=== PATIENT | female | born 1980 | race Two or more races ===

== ENCOUNTER 2020-04-13 09:37 | Outpatient (CLI) | payer OTHER ==
[2020-04-13 10:59] LABS: BASOPHILS # (AUTO) 0.1 10^3/uL (0.0-0.1); BASOPHILS % (AUTO) 0.4 %; EOSINOPHILS # (AUTO) 0.3 10^3/uL (0.0-0.7); EOSINOPHILS % (AUTO) 2.2 %; HGB - HEMOGLOBIN 12.1 g/dL (12.0-16.0); LYMPHOCYTES # (AUTO) 1.5 10^3/uL (1.5-3.5); LYMPHOCYTES % (AUTO) 11.8 %; MEAN CORPUSCULAR HEMOGLOBIN 32.3 pg (27.0-31.0); MEAN CORPUSCULAR HGB CONC 33.3 g/dL (32.0-36.0); MEAN CORPUSCULAR VOLUME 96.8 fL (81.0-99.0); MEAN PLATELET VOLUME 9.3 fL (7.9-10.8); MONOCYTES # (AUTO) 0.7 10^3/uL (0.0-1.0); MONOCYTES % (AUTO) 5.4 %; NEUTROPHILS # (AUTO) 9.8 10^3/uL (1.5-6.6); NEUTROPHILS % (AUTO) 79.5 %; PLT - PLATELET COUNT 332 10^3/uL (130-450); RED BLOOD COUNT 3.75 10^6/uL (4.20-5.40); RED CELL DISTRIBUTION WIDTH 12.3 % (12.0-15.0); WHITE BLOOD COUNT 12.3 x10^3/uL (4.8-10.8)
== END 2020-04-13 09:38 | disposition home or self-care (01) ==
LOC: LAB 09:37
PROVIDERS: ATTEND Advanced Practice Midwife
DX: Z36.89 Encounter for other specified antenatal screening (principal); O09.529 Supervision of elderly multigravida, unspecified trimester
CPT/HCPCS: 36415; 82950; 85025; 86850; 86900; 86901

== ENCOUNTER 2020-04-30 13:10 | Outpatient (CLI) | payer OTHER ==
--- NOTE | 2020-04-30 16:15 | Ultrasound Report ---
PROCEDURE: OB F/U or Repeat INDICATIONS: SUPERVISION OF ELDERLY MULTIGRAVIDIA OUTSIDE/PRIOR DATING DATA: Last menstrual period (LMP): 09/26/2019. LMP-based estimated date of delivery (JODY): 07/02/2020. First dating scan (date and location): Not available, [facility]. Estimated date of delivery (JODY) from first dating scan: Not available. TECHNIQUE: Real-time scanning was performed of the fetus, with image documentation and biometric measurements. Biophysical profile was also performed. COMPARISON: None. FINDINGS: General: A single live intrauterine gestation is present. Presentation: Vertex Placenta: Placental position is anterior, without previa. Amniotic fluid index: 10.6 cm, within normal limits for gestational age. heart rate: 157 beats per minute. Maternal cervical canal: 4.7 cm long; normal length is 2.5 cm or more. biometrics: Biparietal diameter: 8 cm equals 32 weeks 1 day Head circumference: 29.4 cm equals 32 weeks 3 days Abdominal circumference: 27.5 cm equals 31 weeks 4 days Femur length: 6.2 cm equals 31 weeks 6 days Estimated gestational age from initial scan: 31 weeks 0 days Composite gestational age from present scan: 31 weeks 6 days Estimated weight and percentile: 1841 g, 66th percentile Measurement variability in biometric dating: +/- 10 days from 12-20 weeks gestation, +/- 2 weeks from 20-30 weeks gestation, +/- 3 weeks at 30 weeks gestation or more. Other: Not applicable. Biophysical profile: Tone: 2 points Movement: 2 points Respiration: 2 points Largest pocket: 2 points, 3.7 cm IMPRESSION: Single live intrauterine . Normal growth compared to the given prior outside dating. Normal biophysical profile, 8/8 points. Reviewed by: Chad Deal MD on 04/30/2020 3:13 PM [place] Approved by: Chad Deal MD on 04/30/2020 3:[address] [facility] Station ID: [id number]
== END 2020-04-30 13:11 | disposition home or self-care (01) ==
LOC: DI 13:10
PROVIDERS: ATTEND Advanced Practice Midwife
DX: O09.523 Supervision of elderly multigravida, third trimester (principal); Z3A.31 31 weeks gestation of pregnancy

== ENCOUNTER 2020-06-04 07:56 | Outpatient (CLI) | payer OTHER ==
[2020-06-04 09:26] VITALS: BP 121/77
--- NOTE | 2020-06-04 11:25 | Ultrasound Report ---
PROCEDURE: OB F/U or Repeat INDICATIONS: SUPERVISION OF ELDERLY MULTIGRAVIDA OUTSIDE/PRIOR DATING DATA: Last menstrual period (LMP): 09/26/2019. LMP-based estimated date of delivery (JODY): 07/02/2020. First dating scan (date and location): Not available, [facility]. Estimated date of delivery (JODY) from first dating scan: Given as 07/02/2020. TECHNIQUE: Real-time scanning was performed of the fetus, with image documentation and biometric measurements. COMPARISON: 04/30/2020, 02/16/2020 FINDINGS: General: A single live intrauterine gestation is present. Presentation: Breech Placenta: Placental position is anterior, without previa. Amniotic fluid index: 19.8 cm cm, 81st percentile for gestational age. heart rate: 140 beats per minute. Maternal cervical canal: 3.7 cm long; normal length is 2.5 cm or more. biometrics: Biparietal diameter: 8.7 cm equals 35 weeks 1 day Head circumference: 31.6 cm equals 35 weeks 4 days Abdominal circumference: 31.6 cm equals 35 weeks 4 days Femur length: 6.9 cm equals 35 weeks 3 days Estimated gestational age from initial scan: 36 weeks 0 days Composite gestational age from present s can: 35 weeks 3 days Estimated weight and percentile: 2683 g, 36th percentile Measurement variability in biometric dating: +/- 10 days from 12-20 weeks gestation, +/- 2 weeks from 20-30 weeks gestation, +/- 3 weeks at 30 weeks gestation or more. Other: Not applicable. No anatomic abnormality is identified on these images. IMPRESSION: Normal interval growth compared to the prior ultrasound examination. Reviewed by: Chad Deal MD on 06/04/2020 10:24 AM [facility] Approved by: Chad Deal MD on 06/04/2020 10:24 AM [facility] Station ID: [id number]
--- NOTE | 2020-06-04 13:02 | PROCEDURE REPORT ---
- HPI Diagnosis/Indication for NST: Intrauterine growth restriction (history of) Current EDU 07/02/20 Gestation 36 Weeks and 0 Days 2 Para 1 Vital Signs Temperature 37.0 C 06/04/20 09:25 Heart Rate 98 06/04/20 09:25 Respiratory Rate 18 06/04/20 09:25 Blood Pressure 121/77 06/04/20 09:25 O2 Saturation 100 06/04/20 09:25 Temperature 37.0 C 06/04/20 09:25 Heart Rate 98 06/04/20 09:25 Respiratory Rate 18 06/04/20 09:25 Blood Pressure 121/77 06/04/20 09:25 O2 Saturation 100 06/04/20 09:25 - NST Procedure NST Procedure Start Date 06/04/20 Start Time 09:15 Stop Time 09:47 Vibroacoustic Stimulation Used No Patient States Movement Yes - Results and Plan Findings/Impression: Hilario Bolanos is a 39yo at 36.0 weeks who presents for Weekly NST, Growth and ODALIS per [facility] recommendation for history of IUGR NST perform date 06/04/2020 NST read date 06/04/2020 FHT 150s, moderate variability, 15x15 accels, no decels Uterine activity- irregular/mild ODALIS- wnl (19.8cm, 81%) Growth- wnl (2683g, 36%) NST interpretation: Reactive Plan Continue with weekly NST, Growth and ODALIS Continue with routine care Final Diagnosis: History of IUGR
== END 2020-06-04 10:00 | disposition home or self-care (01) ==
LOC: DI 07:56 → FBP 09:09 → DI 10:00
PROVIDERS: ATTEND Advanced Practice Midwife
DX: O09.523 Supervision of elderly multigravida, third trimester (principal); Z3A.36 36 weeks gestation of pregnancy
CPT/HCPCS: 59025

== ENCOUNTER 2020-06-07 08:00 | Outpatient (CLI) | payer OTHER | END 2020-06-07 23:59 | disposition home or self-care (01) | LOC: LAB.R 08:00 | PROVIDERS: ATTEND Obstetrics & Gynecology | DX: Z36.85 Encounter for antenatal screening for Streptococcus B (principal) | CPT/HCPCS: 87797 ==

== ENCOUNTER 2020-06-10 09:55 | Outpatient (CLI) | payer OTHER ==
[2020-06-10 11:25] VITALS: BP 134/85
--- NOTE | 2020-06-10 11:39 | PROCEDURE REPORT ---
- HPI Diagnosis/Indication for NST: Intrauterine growth restriction Vital Signs Temperature 36.8 C 06/10/20 10:07 Heart Rate 99 06/10/20 10:07 Respiratory Rate 20 06/10/20 10:07 Blood Pressure 134/85 H 06/10/20 10:07 O2 Saturation 99 06/10/20 10:07 Temperature 36.8 C 06/10/20 10:07 Heart Rate 99 06/10/20 10:07 Respiratory Rate 20 06/10/20 10:07 Blood Pressure 134/85 H 06/10/20 10:07 O2 Saturation 99 06/10/20 10:07 - NST Procedure NST Procedure Start Time 09:15 Stop Time 09:47 - Results and Plan Plan: Hilario is a 39yo at 36.6wks gestation who presents for scheduled NST, Growth and ODALIS per [facility] recommendation for history of IUGR. She reports she is feeling well. She denies VB, LoF, or contractions. She denies concerns or complaints today. NST performed 06/10/2020 NST read 06/10/2020 NST reactive: FHT 150s, moderate variability, + accels, subtle late deceleration x 1 initially which resolved with hydration and repositioning of patient. Contractions irregular every 3-9 minutes with soft resting tone. Palpate mild and patient does not appreciate contractions. BPP 11/20 ODALIS 18.7 (WNL) Plan Continue with weekly NST, Growth and ODALIS Continue with routine care; pt has scheduled elective delivery 06/27/2020 Final Diagnosis: History of IUGR
--- NOTE | 2020-06-10 14:25 | Ultrasound Report ---
PROCEDURE: OB Biophysical Profile INDICATIONS: Advanced Maternal Age OUTSIDE/PRIOR DATING DATA: Last menstrual period (LMP): 09/26/2019. LMP-based estimated date of delivery (JODY): 07/02/2020. First dating scan (date and location): 04/30/2020 at [facility] Estimated date of delivery (JODY) from first dating scan: 07/02/2020. TECHNIQUE: Real-time transabdominal scanning was performed of the fetus, with image documentation an d biometric measurements. Biophysical profile was also obtained. COMPARISON: None. FINDINGS: General: A single living intrauterine gestation is present. Presentation: Breech Placenta: Placental position is anterior, without previa. Amniotic fluid index: 18.7 cm, 78 percentile for gestational age. heart rate: 143 beats per minute. Maternal cervical canal: 3.8 cm long; normal length is 2.5 cm or more. biometrics: Estimated gestational age from initial scan: 36 weeks 6 days. Biophysical profile: Tone: 2 points. Movement: 2 points. Respiration: 2 points. Largest pocket of fluid: 2 points. Umbilical artery Doppler: SD ratio at the placenta is 2.0/1.8; at midportion is 2.3/1.8; at CI is 2. 1/2.1 IMPRESSION: 1. Biophysical profile = 8/8 2. Normal umbilical artery Doppler. 3. Normal ODALIS. 4. The cervix is closed. Reviewed by: Zane Martin on 06/10/2020 2:23 PM PST Approved by: Zane Martin on 06/10/2020 2:23 PM PST Station ID: [id number]
== END 2020-06-10 13:50 | disposition home or self-care (01) ==
LOC: WFO 09:55 → FBP 10:00 → WFO 13:50
PROVIDERS: ATTEND Nurse Practitioner Obstetrics & Gynecology
DX: O36.5930 Maternal care for other known or suspected poor fetal growth, third trimester, not applicable or unspecified (principal); Z3A.36 36 weeks gestation of pregnancy
CPT/HCPCS: 59025

== ENCOUNTER 2020-06-17 18:54 | Outpatient (CLI) | payer OTHER ==
--- NOTE | 2020-06-17 21:50 | Ultrasound Report ---
PROCEDURE: OB Biophysical Profile INDICATIONS: HIST OF GROWTH RETARDATION OUTSIDE/PRIOR DATING DATA: Last menstrual period (LMP): 09/26/2019. LMP-based estimated date of delivery (JODY): 07/02/2020. TECHNIQUE: Real-time scanning was performed of the fetus, with image documentation and biometric caitie surements. Biophysical profile was also obtained. Endovaginal scanning: Performed COMPARISON: 06/10/2020 FINDINGS: General: A single living intrauterine gestation is present. Presentation: Breech Placenta: Placental position is anterior, without previa. Amniotic fluid index: Largest pocket 6.1 cm, 65th percentile for gestational age. heart rate: 131 beats per minute. Maternal cervical canal: 3.4 cm long; normal length is 2.5 cm or more. Measurement variability in biometric dating: +/- 10 days from 12-20 weeks gestation, +/- 2 weeks from 20-30 weeks gestation, +/- 3 weeks at 30 weeks gestation or later. Biophysical profile: Tone: 2 points. Movement: 2 points. Respiration: 2 points. Largest pocket of fluid: 2 points. Umbilical artery Doppler: S/D ratios are 2.4 and 2.1 at the placenta, 2.4 and 2.1 in the mid segment ; 2.8 and 2.3 at the umbilicus IMPRESSION: Single live intrauterine gestation with normal ODALIS. Normal biophysical profile and cord Doppler S/D ratios. Reviewed by: Regulo Bustillos MD on 06/17/2020 9:49 PM PST Approved by: Regulo Bustillos MD on 06/17/2020 9:49 PM PST Station ID: [id number]
== END 2020-06-17 18:55 | disposition home or self-care (01) ==
LOC: DI 18:54
PROVIDERS: ATTEND Nurse Practitioner Obstetrics & Gynecology
DX: Z87.59 Personal history of other complications of pregnancy, childbirth and the puerperium (principal)

== ENCOUNTER 2020-06-17 19:55 | Outpatient (CLI) | payer OTHER ==
[2020-06-17 20:57] VITALS: BP 123/75
--- NOTE | 2020-06-18 13:05 | PROCEDURE REPORT ---
- HPI Diagnosis/Indication for NST: Other (History of IUGR) Current EDU 07/02/20 Gestation 37 Weeks and 6 Days 2 Para 1 Vital Signs Temperature 98.1 F 06/17/20 20:07 Heart Rate 80 06/17/20 20:07 Respiratory Rate 16 06/17/20 20:07 Blood Pressure 123/75 06/17/20 20:07 O2 Saturation 100 06/17/20 20:07 Temperature 98.1 F 06/17/20 20:07 Heart Rate 80 06/17/20 20:07 Respiratory Rate 16 06/17/20 20:07 Blood Pressure 123/75 06/17/20 20:07 O2 Saturation 100 06/17/20 20:07 - NST Procedure NST Procedure Start Date 06/17/20 Start Time 20:05 Stop Time 20:37 Vibroacoustic Stimulation Used No Patient States Movement Yes - Results and Plan Findings/Impression: Baseline: BPM 140 Variability: Moderate Accelerations: Present Decelerations: Absent Trends in FHR over time: no changes [place] contractions in 10 minutes: 1-2 Impression: reactive Category 1 NST
== END 2020-06-17 20:40 | disposition home or self-care (01) ==
LOC: WFO 19:55 → FBP 20:05 → WFO 20:40
PROVIDERS: ATTEND Obstetrics & Gynecology
DX: O36.5930 Maternal care for other known or suspected poor fetal growth, third trimester, not applicable or unspecified (principal); Z3A.37 37 weeks gestation of pregnancy; Z87.59 Personal history of other complications of pregnancy, childbirth and the puerperium
CPT/HCPCS: 59025

== ENCOUNTER 2020-06-23 08:49 | Inpatient (IN) | payer OTHER ==
--- NOTE | 2020-06-23 09:18 | HISTORY & PHYSICAL EXAMINATION ---
Admit History - Other Maternal History Other Maternal History: CC: leaking of water HPI: SROM clear with small gushes starting at 0715 Scant blood streaks but no bleeding flow. No UC. Not feeling much movement. ROS: no fevers or cough PMH: latent TB s/p INH for 6mos in 2019. Rectocele. PSH: neg SH: no t/e/d. Partner is active duty. Allergies: NKDA Meds: PNV daily FH: no anesthesia complications OB: Initial U/S: JODY 07/02/20 by LMP c/w 10w3d US on 12/02 (US JODY 06/27/20) AB neg *Rhogam given 04/13/2020 Hx Latent TB- CXR clear in 2018- per move from [place] -imm VZV- imm Gentic testing: quad neg FAS w/ MFM: WNL, anterior placenta, no previa, ODALIS WNL, EFW 79%ile. MFM rec: US @ 30-32wks; & 36wks, (OKd to do here) then @ 36wks weekly NST/BPP Growth US @ 32wks: EFW 66%, BPP 11/20. Normal growth US, no IUGR concerns @ this time. Glucola: 116 Flu: done TDAP 04/13/20 GBS NEG @ 36.2wks HSV: denies self & partner Breast pump Rx: has MOD: scheduled CS . Son: Dilan. Baby GIRL! --Hx traumatic experience: not listened to when c/o SROM, ruptured for 7d, chorio, vaccum & forceps, sepsis w/ 10d ICU admit. Midwifery care with MD tana WOODARD. Now desires CS with breech presentaton --Hx of IUGR, 5#8oz at 38w. Pt is 5'7, FOB 6'3". Will do growth monitoring per MFM. --AMA 39yo; Genetic screen-WNL. Offered 20w US with MFM. ASA 81mg daily for pre-E prevention. Baseline P:C WNL ---pp contraception: tubal ligation - signed 05/20/2020 O: AVSS Alert, nervous, NAD Breech by US Pad heavy and saturated with clear fluid, nitrizine + A/P: 39yo at 38w5d here with SROM clear at 07:15 at term, breech presentation. complicated by IUGR and persistent breech. Plan primary now with bilateral salpingectomy per pt's desire for sterilization. Has been preop-ed by Dr. Bender. We reviewed how the pro cedure is performed, recovery, alternative of vaginal delivery not recommended. Risks include bleeding, infection, trauma to local organs, anesthesia complications, and problems with future pregnancies due to scar on the uterus. Tubal ligation can fail and if she is then she needs to seek immediate medical care. She declines reversible methods of contraception. Fetus: breech, IUGR, normal anatomy scan, normal QS, clear fluid, GBS neg : Rh neg will do rhogam eval. RI, , s/p tdap and flu vax. Physical - Abdominal Exam Vital Signs: Temp Pulse Resp BP Pulse Ox 98.2 F 97 18 128/83 H 99 06/23/20 09:01 06/23/20 09:01 06/23/20 09:01 06/23/20 09:01 06/23/20 09:01
[2020-06-23] MEDS ORDERED: ONDANSETRON 4 MG/2 ML VIAL IVP PRN ×3 (09:28→12:44)
[2020-06-23] MEDS ORDERED: METHYLERGONOVINE 0.2 MG/ML VIAL IM PRN (09:28)
[2020-06-23] MEDS ORDERED: OXYTOCIN 10 UNIT/ML VIAL IM PRN (09:28)
[2020-06-23] MEDS ORDERED: CARBOPROST TROMETHAMINE 250 MCG/ML AMP IM PRN (09:28)
[2020-06-23] MEDS ORDERED: OXYTOCIN/SODIUM CHLORIDE 500 ML IV PRN (09:28)
[2020-06-23] MEDS ORDERED: miSOPROStoL 200 MCG TABLET BC PRN (09:28)
[2020-06-23] MEDS ORDERED: TRANEXAMIC ACID IN NACL 1,000 MG/100 ML BAG IV PRN (09:28)
[2020-06-23] MEDS ORDERED: LIDOCAINE-MPF 1% 30 ML VIAL ID PRN (09:28)
[2020-06-23] MEDS ORDERED: ceFAZolin 2 GM in SODIUM CHLORIDE 0.9% MINIBAG 100 ML IV SCH (09:30)
--- NOTE | 2020-06-23 09:52 | ANESTHESIA ---
Pre-Anesthesia VS, & Labs - Diagnosis breech - Procedure section, bilateral tubal Vital Signs: Temp Pulse Resp BP Pulse Ox 36.8 C 97 18 128/83 H 99 06/23/20 09:01 06/23/20 09:01 06/23/20 09:01 06/23/20 09:01 06/23/20 09:01 Height: 5 ft 7 in Weight (kg): 83.461 kg Body Mass Index: 28.8 BMI Classification: Overweight - NPO Other (8 am) - Is Patient ?: Yes Home Medications and Allergies Active Medications Carboprost Tromethamine (Carboprost Tromethamine 250 Mcg/Ml Amp) 250 mcg IM Q15M PRN PRN Reason: Step 4: Hemorrhage protocol Stop: 06/28/20 09:30 Lactated Ringer's (Lr) 1,000 mls @ 150 mls/hr IV .Q6H40M YVES Oxytocin/Sodium Chloride (Pitocin/Sodium Chloride) 500 mls @ 999 mls/hr IV PRN PRN; Protocol PRN Reason: POST- HEMORR PREVENTION Stop: 06/28/20 09:30 Tranexamic Acid (Tranexamic 1,000 Mg/100ml-Nacl) 1,000 mg in 100 mls @ 600 mls/hr IV .ONCE PRN PRN Reason: EBL >1200mL and within 3hr Stop: 06/28/20 09:30 Cefazolin Sodium 2 gm/ Sodium (Chloride) 100 mls @ 200 mls/hr IV ONCE YVES Stop: 06/23/20 17:00 Lidocaine HCl (Lidocaine-Mpf 1% 30 Ml Vial) 30 ml ID .ONCE PRN PRN Reason: PERINEAL REPAIR Stop: 06/28/20 09:30 Methylergonovine Maleate (Methylergonovine 0.2 Mg/Ml Vial) 0.2 mg IM .ONCE PRN PRN Reason: Step 2: Hemorrhage protocol Stop: 06/28/20 09:30 Misoprostol (Misoprostol 200 Mcg Tablet) 800 mcg BC .ONCE PRN PRN Reason: Step 3: Hemorrhage protocol Stop: 06/28/20 09:30 Ondansetron HCl (Ondansetron 4 Mg/2 Ml Vial) 4 mg IVP Q4H PRN PRN Reason: Nausea / Vomiting Oxytocin (Oxytocin 10 Unit/Ml Vial) 10 unit IM .ONCE PRN PRN Reason: Step one: If no IV access Stop: 06/28/20 09:30 Sodium Chloride (Sodium Chloride Flush 0.9% 10 Ml Syringe) 10 ml IVP PRN PRN PRN Reason: NEEDED PER PROVIDER ORDERS Sodium Chloride (Sodium Chloride Flush 0.9% 10 Ml Syringe) 10 ml IVP 0100,0900,1700 YVES Anes History & Medical History - Anesthetic History Anesthesia Complications: reports: No previous complications - Medical History Cardiovascular: reports: None Pulmonary: reports: None Gastrointestinal: reports: None Urinary: reports: None Neuro: reports: None Musculoskeletal: reports: None Endocrine/Autoimmune: reports: None Smoking Status: Never smoker Psychosocial: reports: No issues indicated History of Cancer?: No Exam General: Alert Dental: WNL Mouth Opening: Greater than 4 Fingerbreadths Mallampati classification: II Thyromental Distance: greater than 6 cm Respiratory: Lungs clear Cardiovascular: Regular rate Plan Anesthesia Type: Spinal Consent for Procedure(s) Verified and Reviewed: Yes Code Status: Attempt Resuscitation ASA classification: 2-Mild systemic disease Is this case an emergency?: Yes
[2020-06-23] MEDS ORDERED: LACTATED RINGERS 1,000 ML IV SCH ×2 (10:00→13:00)
[2020-06-23] MEDS ORDERED: fentaNYL 100 MCG/2 ML VIAL ONE (10:18)
[2020-06-23] MEDS ORDERED: MORPHINE PF 5 MG/10 ML VIAL ONE (10:19)
[2020-06-23] MEDS ORDERED: OXYTOCIN 10 UNIT/ML VIAL ONE (10:19)
[2020-06-23 10:24] LABS: BASOPHILS % (AUTO) 0.3 %; EOSINOPHILS # (AUTO) 0.2 10^3/uL (0.0-0.7); EOSINOPHILS % (AUTO) 1.5 %; HCT - HEMATOCRIT 38.6 % (37.0-47.0); HGB - HEMOGLOBIN 13.2 g/dL (12.0-16.0); LYMPHOCYTES # (AUTO) 1.4 10^3/uL (1.5-3.5); MEAN CORPUSCULAR HEMOGLOBIN 32.2 pg (27.0-31.0); MEAN CORPUSCULAR HGB CONC 34.2 g/dL (32.0-36.0); MEAN CORPUSCULAR VOLUME 94.1 fL (81.0-99.0); MEAN PLATELET VOLUME 9.8 fL (7.9-10.8); MONOCYTES # (AUTO) 0.6 10^3/uL (0.0-1.0); MONOCYTES % (AUTO) 5.5 %; NEUTROPHILS # (AUTO) 9.3 10^3/uL (1.5-6.6); NEUTROPHILS % (AUTO) 80.2 %; PLT - PLATELET COUNT 315 10^3/uL (130-450); RED CELL DISTRIBUTION WIDTH 12.2 % (12.0-15.0); WHITE BLOOD COUNT 11.6 x10^3/uL (4.8-10.8)
[2020-06-23] MEDS ORDERED: ceFAZolin 1 GM VIAL ONE ×2 (10:50→10:57)
[2020-06-23] MEDS ORDERED: fentaNYL 100 MCG/2 ML VIAL IT ONE (11:10)
[2020-06-23] MEDS ORDERED: MORPHINE PF 5 MG/10 ML VIAL IT ONE (11:10)
[2020-06-23 11:50] LABS: B. PARAPERTUSSIS- RESP PCR PAN NOT DETECTED; B. PERTUSSIS- RESP PCR PANEL NOT DETECTED; C. PNEUMONIAE- RESP PCR PANEL NOT DETECTED; CORONAVIRUS 229E-RESP PCR NOT DETECTED; CORONAVIRUS HKU1-RESP PCR NOT DETECTED; CORONAVIRUS NL63-RESP PCR NOT DETECTED; CORONAVIRUS OC43-RESP PCR NOT DETECTED; HUMAN METAPNEUMOVIRUS NOT DETECTED; INFLUENZA A- RESP PCR PANEL NOT DETECTED; INFLUENZA B - RESP PCR PANEL NOT DETECTED; M. PNEUMONIAE- RESP PCR PANEL NOT DETECTED; PARAINFLUENZA VIRUS 1 NOT DETECTED; PARAINFLUENZA VIRUS 2 NOT DETECTED; PARAINFLUENZA VIRUS 3 NOT DETECTED; PARAINFLUENZA VIRUS 4 NOT DETECTED; RHINOVIRUS/ENTEROVIRUS NOT DETECTED; RSV- RESP PCR PANEL NOT DETECTED; SARS-CoV-2 -RESP PCR PANEL NOT DETECTED
[2020-06-23] MEDS ORDERED: ONDANSETRON 4 MG/2 ML VIAL ONE ×2 (11:56→12:11)
[2020-06-23] MEDS ORDERED: METOCLOPRAMIDE 10 MG/2 ML VIAL ONE (11:56)
[2020-06-23] MEDS ORDERED: ROPIVACAINE 0.5% PF 20 ML AMPULE ONE (12:01)
[2020-06-23] MEDS ORDERED: KETOROLAC 30 MG/ML VIAL ONE (12:09)
[2020-06-23] MEDS ORDERED: WITCH HAZEL/GLYCERIN 1 PAD TOP PRN (12:39)
[2020-06-23] MEDS ORDERED: diphenhydrAMINE 25 MG CAPSULE PO PRN (12:39)
[2020-06-23] MEDS ORDERED: oxyCODONE 5 MG TABLET PO PRN (12:39)
[2020-06-23] MEDS ORDERED: HYDROCORTISONE 1% CREAM 28 GM TUBE PR PRN (12:39)
[2020-06-23] MEDS ORDERED: ONDANSETRON ODT 4 MG TABLET TL PRN (12:39)
[2020-06-23] MEDS ORDERED: SIMETHICONE CHEW 80 MG TABLET PO PRN (12:39)
[2020-06-23] MEDS ORDERED: SCOPOLAMINE PATCH TOP PRN (12:39)
[2020-06-23] MEDS ORDERED: NALBUPHINE 10 MG/ML AMP IVP PRN (12:41)
[2020-06-23] MEDS ORDERED: diphenhydrAMINE INJ 50 MG/ML VIAL IVP PRN (12:41)
[2020-06-23] MEDS ORDERED: NALOXONE 0.4 MG/ML VIAL IVP PRN ×2 (12:41→12:44)
[2020-06-23] MEDS ORDERED: METOCLOPRAMIDE 10 MG/2 ML VIAL IVP PRN ×2 (12:41→12:44)
[2020-06-23] MEDS ORDERED: fentaNYL 100 MCG/2 ML VIAL IVP PRN (12:44)
[2020-06-23] MEDS ORDERED: MORPHINE 2 MG/ML CARPUJECT IVP PRN (12:44)
[2020-06-23] MEDS ORDERED: HYDROmorphone 0.5 MG/0.5 ML SYRINGE IVP PRN (12:44)
[2020-06-23] MEDS ORDERED: ePHEDrine 50 MG/ML VIAL IVP PRN (12:44)
[2020-06-23] MEDS ORDERED: ATROPINE ABBOJECT 1 MG/10 ML SYRINGE IVP PRN (12:44)
--- NOTE | 2020-06-23 12:46 | ANESTHESIA POST OP EVALUATION ---
Anesthesia Post Eval - Post Anesthesia Eval Vitals: Last Vital Signs Temp 36.7 C 06/23/20 10:27 Pulse 97 06/23/20 09:01 Resp 18 06/23/20 09:01 BP 128/83 H 06/23/20 09:01 Pulse Ox 99 06/23/20 09:01 CV Function Including HR & BP: positive: Stable Pain Control: positive: Satisfactory Nausea & Vomiting: positive: Negative Mental Status: positive: Patient Participates Respiratory Status: Airway Patent Hydration Status: Satisfactory Anesthesia Complications: positive: None
[2020-06-23] MEDS ORDERED: LACTATED RINGERS 1,000 ML IV ONE (12:49)
--- NOTE | 2020-06-23 12:49 | OPERATIVE REPORT ---
Operative Report - General Admit Date: 06/23/20 - Other Other Information/Narrative: Date of service: 06/23/20 Preoperative diagnosis: Spontaneous rupture of membranes at term, breech presentation, desires permanent sterilization Postoperative diagnosis: same Procedure: section, primary low transverse. Bilateral salpingectomy. Surgeon: Abiola Upward Bound Director: Ashwini CARTER needed to provide adequate retraction and expulsion to perform surgery Anesthesia: Spinal Estimated Blood Loss: 450cc IV Fluids: 1200cc Urine output: 300cc Counts: correct sponge and instrument Complications: none apparent Disposition: stable to recovery room Prophylaxis: SCD to bilateral lower extremities, Ancef 2g IV Specimens: Cord blood for typing. Placenta discarded. Fallopian tubes sent to pathology. Findings: Clear fluid. Liveborn female, apgars 8/9. Normal uterus, ovaries, and fallopian tubes. The patient was brought to the operating room, where she underwent spinal anesthesia. A Cheng catheter was placed and SCDs were placed. She was prepped and draped in the usual sterile fashion. A scalpel was used to make a Pfannenstiel skin incision 3 cm superior to the pubic symphysis. This was carried down to the fascia, which was nicked in the midline bilaterally. The fascial incision was extended laterally and slightly superiorly, sharply. Kochers were placed on the inferior margin of the fascial incision and the fascia was bluntly and sharply dissected off of the rectus. The Kochers were replaced superiorly and the same was performed. The peritoneum was bluntly entered. The peritoneum and rectus were stretched and room was adequate. A bladder retractor was placed. A scalpel was used to make a transverse incision in the lower uterine segment. The uterus was breeched with a finger. The uterine incision was opened bluntly by applying caudal and cranial traction. The membranes were ruptured with clear fluid present. The surgeon's hand was placed in the uterine cavity and the head was elevated and then delivered with the assistance of fundal pressure. The umbilical cord was clamped x2 and cut and the baby was handed to the doctor of radiology in waiting. The placenta was delivered with external uterine massage. Curettage with a dry laparotomy did not yield any retained membranes. The uterus was externalized. The uterine incision was closed with a running layer of 0 Vicryl. A second imbricating suture was performed. Oozing in the right corner required a figure of 8 suture and good hemostasis resulted. The fallopian tubes were removed with a ligasure, dividing the mesosalpinx, and then amputating the tube at the cornua. The uterus was replaced into the abdominal cavity. The tubal dissection was hemostatic. Both gutters were irrigated. A slow ooze was present on the right corner of the uterine incision, this resolved with oversewing with a figure of 8. The uterine incision, rectus, and fascia were inspected with good hemostasis seen. The peritoneum was marked with hemostats and closed with interrupted figure of 8s of 2-0 vicryl. The fascia was closed with a running layer of 0 Vicryl from end-to-end. The subcutaneous tissues were copiously irrigated and then closed with 2-0 Vicryl. The skin was closed with 4-0 Monocryl in a subcuticular fashion. Dermabond was then applied. Fundal massage yielded a normal amount of blood and clot. [employer]IGHW[employer]ING TE[employer]ER performed a TAP block. She was transported to the recovery room without difficulty.
[2020-06-23] MEDS ORDERED: SODIUM CHLORIDE FLUSH 0.9% 10 ML SYRINGE IVP SCH (17:00)
[2020-06-23] MEDS: KETOROLAC 30 MG/ML VIAL IVP SCH (19:46)
[2020-06-23] MEDS: SODIUM CHLORIDE FLUSH 0.9% 10 ML SYRINGE IVP PRN (19:47)
[2020-06-23] MEDS: DOCUSATE SODIUM 100 MG CAPSULE PO SCH (21:07)
[2020-06-24] MEDS: KETOROLAC 30 MG/ML VIAL IVP SCH ×2 (01:50→08:19)
[2020-06-24] MEDS: SODIUM CHLORIDE FLUSH 0.9% 10 ML SYRINGE IVP PRN (01:51)
--- NOTE | 2020-06-24 08:42 | PROVIDER PROGRESS NOTE ---
Subjective - Subjective Subjective: Feeling good. No severe pain,heavy bleeding, or mood problems. Great latch and feed. OOB once without probs. Eating and passing flatus. AVSS x HR 100, will watch as pt is OOB more today Alert, smiling, NAD Abd soft, nt/nd Fundus firm, NT, 1cm below U No LE edema 39yo P2 POD#1 s/p primary for breech/labor and bilat salpingectomy. Doing well, routine care, watch HR. Objective - Vital Signs/Intake & Output Vital Signs: Vital Signs x48h Temp Pulse Resp BP Pulse Ox 06/24/20 06:00 16 06/24/20 04:00 98.2 F 102 H 16 108/64 98 06/24/20 03:05 18 06/24/20 02:00 20 06/24/20 01:00 20 Intake & Output: Intake & Output 06/21/20 06/22/20 06/23/20 06/24/20 23:59 23:59 23:59 23:59 Intake Total 600 600 Output Total 378 1070 Balance 222 -470 - Lab Results Fish Bones: 06/23/20 10:05 Other Labs: Lab Results x24hrs 06/23/20 06/23/20 06/23/20 Range/Units 10:15 10:05 10:05 WBC 11.6 H (4.8-10.8) x10^3/uL RBC 4.10 L (4.20-5.40) 10^6/uL Hgb 13.2 (12.0-16.0) g/dL Hct 38.6 (37.0-47.0) % MCV 94.1 (81.0-99.0) fL MCH 32.2 H (27.0-31.0) pg MCHC 34.2 (32.0-36.0) g/dL RDW 12.2 (12.0-15.0) % Plt Count 315 (130-450) 10^3/uL MPV 9.8 (7.9-10.8) fL Neut # (Auto) 9.3 H (1.5-6.6) 10^3/uL Lymph # (Auto) 1.4 L (1.5-3.5) 10^3/uL Karnes # (Auto) 0.6 (0.0-1.0) 10^3/uL Eos # (Auto) 0.2 (0.0-0.7) 10^3/uL Baso # (Auto) 0.0 (0.0-0.1) 10^3/uL Absolute Nucleated RBC 0.00 x10^3/uL Nucleated RBC % 0.0 /100WBC Nasal Adenovirus (PCR) NOT DETECTED Nasal B. parapertussis DNA (PCR) NOT DETECTED Nasal Coronavir 229E PCR NOT DETECTED Nasal Coronavir HKU1 PCR NOT DETECTED Nasal Coronavir NL63 PCR NOT DETECTED Nasal Coronavir OC43 PCR NOT DETECTED Nasal Enterovir/Rhinovir PCR NOT DETECTED Nasal Influenza B PCR NOT DETECTED Nasal Influenza A PCR NOT DETECTED Nasal Parainfluen 1 PCR NOT DETECTED Nasal Parainfluen 2 PCR NOT DETECTED Nasal Parainfluen 3 PCR NOT DETECTED Nasal Parainfluen 4 PCR NOT DETECTED Nasal RSV (PCR) NOT DETECTED Nasal B.pertussis DNA PCR NOT DETECTED Nasal C.pneumoniae (PCR) NOT DETECTED Epi Human Metapneumo PCR NOT DETECTED Nasal M.pneumoniae (PCR) NOT DETECTED Nasal SARS-CoV-2 (PCR) NOT DETECTED Blood Type AB NEGATIVE Antibody Screen POSITIVE Antibody Identification See Comments
[2020-06-24] MEDS: IBUPROFEN 600 MG TABLET PO SCH ×2 (16:41→23:09)
[2020-06-24] MEDS: ACETAMINOPHEN 500 MG TABLET PO PRN (18:11)
[2020-06-24] MEDS: DOCUSATE SODIUM 100 MG CAPSULE PO SCH (21:01)
[2020-06-25] MEDS: ACETAMINOPHEN 500 MG TABLET PO PRN ×2 (02:00→11:15)
[2020-06-25] MEDS: IBUPROFEN 600 MG TABLET PO SCH ×2 (04:43→11:15)
--- NOTE | 2020-06-25 10:29 | Discharge Plan ---
Discharge Plan Problem Reviewed?: Yes Disposition: Home, Self Care Condition: Good Prescriptions: Acetaminophen [Acetaminophen Extra Strength] 1,000 mg PO Q6H PRN #45 tablet PRN Reason: Pain Docusate Sodium 100Mg Capsule [Colace 100Mg Capsule] 100 mg PO BID PRN #30 cap PRN Reason: to soften stool Ibuprofen [Motrin] 600 mg PO Q6H PRN #30 tab PRN Reason: Pain oxyCODONE [Roxicodone] 2.5 - 5 mg PO Q4H PRN #20 tablet PRN Reason: Severe Pain Diet: Regular No Smoking: If you smoke, Please STOP! Call for help. Follow-up with: Halley Bender MD [Provider Admit Priv/Credential] - 1 Week
[2020-06-25] MEDS: DOCUSATE SODIUM 100 MG CAPSULE PO SCH (11:16)
--- NOTE | 2020-06-25 13:18 | DISCHARGE SUMMARY ---
Physician: Damaris Culver MD DATE OF ADMISSION: 06/23/2020 DATE OF DISCHARGE: 06/25/2020 ADMISSION DIAGNOSES 1. Intrauterine at 38 weeks 5 days. 2. Spontaneous rupture of membranes, breech presentation. 3. Rh negative. 4. Desires permanent surgical sterilization. DISCHARGE DIAGNOSIS: Status post primary section with bilateral salpingectomy. OPERATIONS AND PROCEDURES: 06/23/2020, primary low transverse section. Bilateral salpingectomy was also performed. Pathology was normal and the anatomy was normal. ESTIMATED BLOOD LOSS: 450 mL. HOSPITAL COURSE: The patient was admitted from triage for her section due to ruptured membranes and breech. This was uncomplicated. By day #2, she was requesting discharge home. She was eating, ambulating, urinating, and passing flatus without difficulties. She was well, but her latch had deteriorated a bit and she was experiencing some nipple soreness. No heavy bleeding or mood problems. Her pain was under good control. PHYSICAL EXAM She was afebrile with normal vital signs. GENERAL: Alert and smiling, in no apparent distress. ABDOMEN: Soft, nontender, nondistended. Fundus nontender, and 2 cm below the umbilicus. The incision was clean, dry, and intact without erythema or induration. EXTREMITIES: There is no lower extremity edema bilaterally. DISCHARGE MEDICATIONS 1. Oxycodone. 2. Ibuprofen. 3. Acetaminophen. 4. Colace. DISPOSITION: Home. CONDITION: Good. FOLLOWUP: In [address] Bender. TD: 06/25/2020 10:33 REVISED 06/26/2020 Wisam Acct#Correction Orig. signed 06/25/2020@1521 MTDD
[2020-06-25 14:00] VITALS: BP 129/74
--- NOTE | 2020-06-25 14:05 | Labor Flowsheet ---
Labor Flowsheet Datetime Report Generated by CPN: 06/25/2020 14:05 Datetime: 06/24/2020 09:33 Pulse: 85 SpO2 (%): 100 Datetime: 06/24/2020 09:04 VITAL SIGNS NBP Sys/Lupis/Mean (mmHg): 110 : 64 : 74
== END 2020-06-25 13:05 | disposition home or self-care (01) | DRG 785 ==
LOC: WFO 08:49 → FBP 09:04 → WFO 09:28 → FBP 09:29
PROVIDERS: ADMIT Obstetrics & Gynecology; ATTEND Obstetrics & Gynecology
PROC: 0UT70ZZ Resection of Bilateral Fallopian Tubes, Open Approach (ICD-10-PCS; 2020-06-23)
PROC: 10D00Z1 Extraction of Products of Conception, Low, Open Approach (ICD-10-PCS; principal; 2020-06-23 10:30)
DX: O32.1XX0 Maternal care for breech presentation, not applicable or unspecified (principal); O36.5930 Maternal care for other known or suspected poor fetal growth, third trimester, not applicable or unspecified; Z3A.38 38 weeks gestation of pregnancy; Z37.0 Single live birth; Z20.822 Contact with and (suspected) exposure to COVID-19
CPT/HCPCS: 0202U; 59025; 85025; 86850; 86870; 86900; 86901; 99213; A9270; J2274; J2765; J7120; 84112

== ENCOUNTER 2020-06-27 11:02 | Outpatient (CLI) | payer OTHER ==
--- NOTE | 2020-06-27 12:40 | Labor Flowsheet ---
Labor Flowsheet Datetime Report Generated by CPN: 06/27/2020 12:40 Datetime: 06/24/2020 09:33 Pulse: 85 SpO2 (%): 100 Datetime: 06/24/2020 09:04 VITAL SIGNS NBP Sys/Lupis/Mean (mmHg): 110 : 64 : 74
== END 2020-06-27 12:20 | disposition home or self-care (01) ==
LOC: WFO 11:02 → FBP 11:06 → WFO 12:20
PROVIDERS: ATTEND Obstetrics & Gynecology
DX: Z39.1 Encounter for care and examination of lactating mother (principal)
CPT/HCPCS: 99404

== ENCOUNTER 2021-05-22 11:19 | Emergency (ER) | payer OTHER ==
--- NOTE | 2021-05-22 12:12 | XRAY Report ---
PROCEDURE: Hand 3 View RT INDICATIONS: Trauma TECHNIQUE: 3 views of the hand(s) acquired. COMPARISON: None FINDINGS: Bones: Nondisplaced oblique fracture through mid to distal shaft of third middle phalanx is seen. Sub tle radiolucency involving ulnar aspect of fourth distal phalangeal base is also noted suggestive of a nondisplaced fracture. No other fracture or dislocation is noted.. No suspicious bony lesions. Soft tissues: No suspicious soft tissue calcifications. IMPRESSION: Nondisplaced oblique fracture through mid to distal shaft of third middle phalanx. Nondisplaced fract ure also noted involving ulnar aspect of fourth distal phalangeal base. Reviewed by: Oscar Encinas MD on 05/22/2021 12:11 PM PST Approved by: Oscar Encinas MD on 05/22/2021 12:11 PM PST Station ID: [id number]
[2021-05-22] MEDS ORDERED: lidocaine 1% 20 ML MDV SUBQ STA (13:06)
--- NOTE | 2021-05-22 14:39 | ED Physician Documentation ---
History of Present Illness - Stated complaint Stated Complaint: RT FINGER PX - Chief complaint Chief Complaint: Ext Problem - History obtained from History obtained from: Patient - Additonal information Additional information: Pt comes to the ED with CC of R middle and ring finger pain after a twisting/traction injury. Pt states she was working with her horses, when her fingers got tangled up in a chain and pulled forcefully. She complains of distal ring finger pain and swelling, and the same in her mid-middle finger. Also, she has a ring on her middle finger that she now cannot remove. No other injuries or complaints. Review of Systems Ten Systems: 10 systems reviewed and negative Constitutional: reports: Reviewed and negative Eyes: reports: Reviewed and negative Ears: reports: Reviewed and negative Nose: reports: Reviewed and negative Throat: reports: Reviewed and negative Cardiac: reports: Reviewed and negative Respiratory: reports: Reviewed and negative GI: reports: Reviewed and negative : reports: Reviewed and negative Skin: reports: Reviewed and negative Musculoskeletal: reports: Extremity pain, Extremity swelling, Joint swelling Neurologic: reports: Reviewed and negative Psychiatric: reports: Reviewed and negative Endocrine: reports: Reviewed and negative Immunocompromised: reports: Reviewed and negative PD PAST MEDICAL HISTORY - Past Medical History Past Medical History: Yes Cardiovascular: None Respiratory: None Neuro: None Endocrine/Autoimmune: None GI: None : None HEENT: None Psych: None Musculoskeletal: None Derm: None - Past Surgical History Past Surgical History: No - Present Medications Home Medications: Ambulatory Orders Medication Instructions Recorded Confirmed No Known Home Medications 05/22/21 05/22/21 - Allergies Allergies/Adverse Reactions: Allergies Allergy/AdvReac Type Severity Reaction Status Date / Time No Known Drug Allergies Allergy Verified 05/22/21 11:31 - Social History Does the pt smoke?: No Smoking Status: Never smoker Does the pt drink ETOH?: Yes Does the pt have substance abuse?: No - Immunizations Immunizations are current?: Yes PD ED PE NORMAL - Vitals Vital signs reviewed: Yes - General General: Alert and oriented X 3, No acute distress - HEENT HEENT: Atraumatic, PERRL, EOMI, Moist mucous membranes - Neck Neck: Supple, no meningeal sign - Cardiac Cardiac: Strong equal pulses - Respiratory Respiratory: No respiratory distress - Derm Derm: Normal color, Warm and dry, Other (Abrasions distal R ring finger. No laceration. No nail involvement.) - Extremities Extremities: No deformity, Other (moderate edema R middle finger, especially around the PIP joint, with tend over middle phalanx. Ring in place. tenderness/contusion over distal phalanx ring finger. ) - Neuro Neuro: Alert and oriented X 3, No motor deficit, No sensory deficit - Psych Psych: Normal mood, Normal affect Results - Vitals Vitals: Oxygen O2 Source Room air - Rads (name of study) R hand XR Radiology: Final report received, EMP read indepedently, See rad report (Oblique fx nondisplaced R middle finger middle phalanx and R ring finger distal phalanx) Procedures - Splint (location) R hand Splint applied by: Tech Type of splint: Fiberglass, Other (volar, fingers/palm) Other: Patient tolerated well, No complications, Neurovascular intact - Regional nerve block Nerve block site: Supraorbital/trochlear, Digital - note digit(s) (middle finger) Right / left: Right Nerve block aftercare: Excellent anesthesia, Patient tolerated well, No complications PD MEDICAL DECISION MAKING - ED course Complexity details: reviewed results, re-evaluated patient, considered differential, d/w patient ED course: XR showed nondisplaced fractures of 3rd middle phalanx and 4th distal phalanx. Removal of ring with lubricant was attempted, but pt could not tolerate having it passed over PIP joint. I d/w pt that we could cut the ring off or give her a digital block and attempt after that. Pt opted for the latter, and stated, "I'd rather have my finger cut off than the ring." Digital block was performed, and ring was able to be removed. This did cause some abrasion on the sides of the pt's finger, but was otherwise uneventful. Pt was splinted. We have discussed the need for orthopedic follow-up within the week for recheck and casting if deemed necessary by the orthopedist. We have discussed the usual indications for return. Departure - Departure Disposition: 01 Home, Self Care Clinical Impression: Fracture of middle phalanx of finger of right hand, Fracture of distal phalanx of finger of right hand Condition: Stable Instructions: ED Fx Finger Closed Follow-Up: Randall Zayas MD [Provider Admit Priv/Credential] - Comments: Your x-ray series shows nondisplaced fractures of the bones of your middle and ring fingers. You had been placed in a splint for this, and should follow-up with orthopedics within the week. Please call this afternoon or first thing tomorrow to set up an appointment for this. We have removed your ring today after numbing your finger. This is because some scraping of the skin, but skin will grow back. You may have some decreased sensation in the finger throughout the day, but this should be transient. Discharge Date/Time: 05/22/21 15:16
[2021-05-22 15:17] VITALS: BP 98/72
== END 2021-05-22 15:16 | disposition home or self-care (01) ==
LOC: ED 11:19
DX: S62.652A Nondisplaced fracture of middle phalanx of right middle finger, initial encounter for closed fracture (principal); X58.XXXA Exposure to other specified factors, initial encounter; Y93.52 Activity, horseback riding
CPT/HCPCS: 64450; 99283